=== PATIENT | female | born 1980 | race Caucasian/White ===

== ENCOUNTER 2022-12-23 09:52 | Outpatient (OUT) | payer OTHER, SELFPAY ==
--- NOTE | 2022-12-23 09:55 | VEIN_ITS ---
Patient: SANAM ESPINAL Exam Date: 12/23/2022 : 1980 Gender:F Ordering : DR ADELA FRANCIS M.D. Admission #: [id number] Family : Order #: [id number] CLICK HERE TO VIEW EXAM RADIOLOGY REPORT PROCEDURE: VC EXT VENOUS REFLUX BINH LMTD COMPARISON: None. INDICATIONS: I83.813 Painful varicose veins of bilat lower extremities TECHNIQUE: Duplex imaging of the lower extremity to assess the deep and superficial venous system for the presence of deep or superficial venous incompetence and to document the location and severity of disease. The study includes evaluation of the great saphenous vein (GSV), anterior accessory saphenous vein (AASV) and small saphenous vein (SSV). Patient scanned in reverse Trendelenburg and standing. FINDINGS: RIGHT LOWER EXTREMITY: Saphenofemoral Junction Reflux: Yes 3.6mm 3.6 sec GSV: Diam (mm) Reflux/ Time (sec) Proximal Thigh 3.7 Yes 2.9 Mid Thigh 1.5 No Distal Thigh 1.7 No Prox Calf 1.1 No Mid Calf 1.6 Saphenopopliteal Junction Reflux: 1.4mm No SSV: Proximal Calf 1.5 No Mid Calf N/A AASV: Proximal Thigh 2.6 No Mid Thigh 2.0 Yes 0.9 Distal Thigh Thrombi: No acute or chronic thrombus visualized Compressibility: Normal Flow: Normal Preforator: No patent perforators visualized Tech Note: Incompetent SFJ. Patent varicose vein medial knee 2.4mm with 0s reflux. Patent varicose vein mid/med thigh 1.6mm with 0s reflux. LEFT LOWER EXTREMITY: Saphenofemoral Junction Reflux: Yes 7.6 mm 2.2 sec GSV: Diam (mm) Reflux/Time (sec) Proximal Thigh 5.5 Yes 0.8 Mid Thigh 1.9 No Distal Thigh 1.5 No Prox Calf 1.4 No Mid Calf 1.3 No Saphenopopliteal Junction Relux: 1.7 mm No SSV: Proximal Calf 1.2 No Mid Calf 1.0 No AASV: Not present Proximal Thigh Mid Thigh Distal Thigh Thrombi: No acute or chronic thrombus visualized Compressibility: Normal Flow: Normal Storage Management Architect: Dist/med calf 2.3mm with 0s reflux. Dist/med calf 2.1mm with 0s reflux. Tech Note: Incompetent SFJ and GSV. Patent varicose vein mid/med calf 1.3mm with 0s reflux. Patent varicose vein dist/med thigh 1.5mm with 0s reflux. CONCLUSION: 1. A few areas of mild dilation and mild reflux as detailed above; otherwise majority of superficial veins are small in caliber with no reflux. Dictated by: Dhruv Longo M.D. on 12/23/2022 at 10:50 Approved by: Dhruv Longo M.D. on 12/23/2022 at 11:57
--- NOTE | 2022-12-23 09:55 | VEIN_ITS ---
Patient: SANAM ESPINAL Exam Date: 12/23/2022 : 1980 Gender:F Ordering : DR ADELA FRANCIS M.D. Admission #: [id number] Family : Order #: [id number] CLICK HERE TO VIEW EXAM RADIOLOGY REPORT PROCEDURE: [facility] - OFFICE VISIT INITIAL COMPARISON: None. PROGRESS NOTES: [age] year old female who presents with a 10 year history of dilated discolored veins and mild leg cramping. The patient's leg symptoms are symmetric bilaterally. There has been a progression of symptoms over time. This increases with prolonged standing which patient does for her job. The patient describes an improvement with rest and elevation. The patient denies any signs and symptoms to suggest arterial ischemia. The patient describes a family history varicose veins on maternal side. The patient has drinking and smoking history of no alcohol consumption or tobacco use. Patient has a past medical history significant for none. The patient denies a history of deep venous thrombus or pulmonary embolus. See separate history and physical for medication list. No prior treatment for varicose or spider veins. Past treatment has included use of compression stockings. After review of nurse notes, history and physical exam I discussed at length the pathophysiology of venous hypertension and possible treatments, therapies and strategies available. We discussed at length the importance of elevating the lower extremities above the level of the heart, increased physical activity and compression stocking use. Ultrasound venous reflux study performed today was discussed at length with the patient. The report demonstrates no significant superficial vein disease warranting endovenous laser or microfoam chemical ablation. PHYSICAL EXAM: The right leg demonstrates no significant varicosities, extensive reticular and spider veins, no ulceration, no edema, no skin discoloration. The left leg demonstrates no significant varicosities, extensive reticular and spider veins, no ulceration, no edema, no skin discoloration. Both thighs, legs and feet were symmetrically warm to the touch. Good posterior tibial and dorsalis pedis pulses were present bilaterally. VEIN/[facility] Facility EST Comprehensive IMPRESSION: 1. Significant reticular and spider veins are present bilaterally 2. No significant lower extremity varicose veins 3. No significant lower extremity subcutaneous edema 4. No flow significant arterial disease 5. CEAP: C1, EC, , [place] PLAN: 1. Continued use of compression stockings 2. Elevated legs and increased physical activity symptomatic relief 3. Bilateral lower extremity sclerotherapy for extensive reticular and spider veins. Nurse notes, history and physical were reviewed and confirmed, see attached forms. The nurse was present throughout the physical exam and consultation Dictated by: Dhruv Longo M.D. on 12/23/2022 at 11:58 Approved by: Dhruv Longo M.D. on 12/23/2022 at 12:02
== END 2022-12-23 09:53 | disposition home or self-care (01) ==
LOC: VC 09:53
PROVIDERS: PCP Radiology Diagnostic Radiology; Visit Provider Radiology Diagnostic Radiology
DX: I83.813 Varicose veins of bilateral lower extremities with pain (principal)
CPT/HCPCS: 93970; G0463